=== PATIENT | male | born 2000 | race Caucasian/White ===

== ENCOUNTER 2019-11-18 09:40 | Emergency (ER) | payer SELFPAY ==
[~2019-11-18] VITALS: Ht 177.8 cm; Wt 122.5 kg
[2019-11-18 11:07] VITALS: BP 117/80
--- NOTE | 2019-11-18 11:12 | Emergency Department Note ---
History of Present Illnes History of Present Illness Chief Complaint: Eye, Ear, Nose, Throat, Dental History of Present Illness This is a 19 year old male . Historian: Patient Arrival Mode: Car Onset (how long ago): day(s) (2) Location: throat Quality: pain Radiation: non-radiation, back, neck, extremity, abdomen, periumbilical, flank, proximal, distal, other Severity: mild Onset quality: gradual Duration (how long): day(s) (2) Timing of current episode: constant Progression: worsening Chronicity: new Context: recent illness, recent surgery, recent immobilization, recent travel, trauma/injury, new medications, hx of DVT/PE, non-compliance w/ medications, other Relieving factors: none Exacerbating factors: none Associated symptoms: denies other symptoms Past Medical/Family History Physician Review I have reviewed the patient's past medical and family history. Any updates have been documented here. Past Medical History Recent Fever: No Clinical Suspicion of Infectio: No New/Unexplained Change in Ment: No Past Medical History: None Past Surgical History: None Social History Smoking Cessation: Current every day smoker Counseling Performed: No Alcohol Use: None Any Illegal Drug Use: No TB Exposure/Symptoms: No Physically hurt or threatened: No Family History Family history of heart diseas: No Other Last Tetanus: unk Any Pre-Existing Lines (PICC,: No Is patient up to date on immun: Yes Last Flu: 2019 Last Pneumovax: 2019 Review of Systems Review of Systems Constitutional: no symptoms EENTM: as per HPI Cardiovascular: no symptoms Respiratory: no symptoms Gastrointestinal: no symptoms Genitourinary: no symptoms Musculoskeletal: no symptoms Neurological: no symptoms Psychological: no symptoms Endocrine: no symptoms Hematological/Lymphatic: no symptoms Review of other systems All other systems reviewed and negative. Physical Exam Related Data Triage Vital Signs Vital Signs Date Time Temp Pulse Resp B/P (MAP) Pulse Ox O2 Delivery O2 Flow Rate FiO2 11/18/19 10:00 98.2 57 18 138/82 98 Vital signs reviewed: Yes Physical Exam CONSTITUTIONAL Constitutional: well-developed, well-nourished HENT HENT: normocephalic, atraumatic, nose normal, pharynx abnormal, erythema HENT L/R: left ext ear normal, right ext ear normal EYES Eyes: PERRL, conjunctivae normal NECK Neck: ROM normal PULMONARY Pulmonary: effort normal, breath sounds normal CARDIOVASCULAR Cardiovascular: regular rhythm, heart sounds normal, capillary refill normal, normal rate GASTROINTESTINAL Abdominal: soft, nontender, bowel sounds normal GENITOURINARY Genitourinary: exam deferred SKIN Skin: warm, dry MUSCULOSKELETAL Musculoskeletal: ROM normal NEUROLOGICAL Neurological: alert, oriented x 3, no gross motor or sensory deficits PSYCHOLOGICAL Psychological: mood/affect normal, judgement normal Results Laboratory Lab results reviewed: Yes Critical Care Time Subsequent provider I assumed direction of critical care for this patient from another provider of my specialty. Assessment & Plan Reassessment Reassessment time: 11:11 Reassessment better Assessment & Plan Final Impression: (1) ACUTE PHARYNGITIS, UNSPECIFIED Assessment & Plan cipro Depart Disposition: HOME, SELF-CARE Last Vital Signs Date Time Temp Pulse Resp B/P (MAP) Pulse Ox O2 Delivery O2 Flow Rate FiO2 11/18/19 10:00 98.2 57 18 138/82 98 CESAR ALONSO MD Nov 18, 2019 11:12
== END 2019-11-18 11:15 | disposition home or self-care (01) ==
LOC: FSED 09:40
DX: J02.9 Acute pharyngitis, unspecified (principal); F17.210 Nicotine dependence, cigarettes, uncomplicated
CPT/HCPCS: 83518; 87400; 99282

== ENCOUNTER 2020-10-23 13:55 | Emergency (ER) | payer OTHER ==
[~2020-10-23] VITALS: Ht 162.6 cm; Wt 129.3 kg
[2020-10-23] MEDS ORDERED: CYCLOBENZAPRINE5 MG PO (14:29)
[2020-10-23] MEDS ORDERED: IBUPROFEN IB200 MG PO (14:29)
[2020-10-23] MEDS ORDERED: ACETAMINOPHEN500 MG PO (14:29)
[2020-10-23] MEDS ORDERED: PREDNISONE20 MG PO (14:29)
== END 2020-10-23 14:33 | disposition home or self-care (01) ==
LOC: FSED 14:10
DX: M54.5 Low back pain (principal); G89.29 Other chronic pain; V89.2XXD Person injured in unspecified motor-vehicle accident, traffic, subsequent encounter
CPT/HCPCS: 99282

== ENCOUNTER 2024-10-04 14:32 | Emergency (ER) | payer SELFPAY ==
[~2024-10-04] VITALS: Ht 182.9 cm; Wt 141.2 kg
[~2024-10-04 14:32] MED LIST: ACETAMINOPHEN500 MG PO; CYCLOBENZAPRINE5 MG PO; IBUPROFEN IB200 MG PO; PREDNISONE20 MG PO
[2024-10-04 14:35] VITALS: PULSE 107; RESP 20; TEMP 98.8; O2SAT 96
[2024-10-04] MEDS: DEXAMETHASONE SOD PHOS INJ 4 MG/ML SDV IM ONE (15:09)
[2024-10-04] MEDS: IBUPROFEN 200 MG TAB PO ONE (15:09)
[2024-10-04] MEDS ORDERED: IBUPROFEN600 MG PO (15:10)
== END 2024-10-04 15:16 | disposition home or self-care (01) ==
LOC: FSED 14:37
DX: M54.2 Cervicalgia (principal); G44.209 Tension-type headache, unspecified, not intractable; M54.9 Dorsalgia, unspecified; G89.29 Other chronic pain
CPT/HCPCS: 99284; J1100